=== PATIENT | female | born 1975 | race Asian ===

== ENCOUNTER 2018-01-30 16:35 | Emergency (ER) | payer OTHER ==
[~2018-01-30] VITALS: Ht 152.4 cm; Wt 75.0 kg
[2018-01-30 16:38] VITALS: BP 155/85
[2018-01-30] MEDS ORDERED: HYDROcodone/APAP 5/325 TABLET PO ONE (17:00)
[2018-01-30] MEDS ORDERED: KETOROLAC 30 MG/1 ML IM ONE (17:00)
[2018-01-30] MEDS ORDERED: KETOROLAC 30 MG/1 ML ONE (17:02)
[2018-01-30] MEDS ORDERED: HYDROcodone/APAP 5/325 TABLET ONE (17:03)
== END 2018-01-30 18:58 | disposition home or self-care (01) ==
LOC: ED 18:45
DX: R07.89 Other chest pain (principal); E03.9 Hypothyroidism, unspecified; V49.59XA Passenger injured in collision with other motor vehicles in traffic accident, initial encounter; Y93.89 Activity, other specified; Y99.8 Other external cause status; Y92.410 Unspecified street and highway as the place of occurrence of the external cause
CPT/HCPCS: 71046; 93005; 96372; 99284; J1885